=== PATIENT | male | born 1980 | race Two or more races ===

== ENCOUNTER 2019-04-19 23:03 | Emergency (ER) | payer MEDICAID ==
[~2019-04-19] VITALS: Ht 152.4 cm; Wt 81.6 kg
[2019-04-20 01:23] VITALS: BP 128/84
[2019-04-20] MEDS ORDERED: CLINDAMYCIN HCL 150 MG CAP PO ONE (02:00)
[2019-04-20] MEDS ORDERED: TETANUS-DIPTH-ACEL PERTUSSIS 0.5ML SYRG IM ONE (02:00)
[2019-04-20] MEDS ORDERED: cefTRIAXone SOD 1,000 MG VL IM ONE (02:15)
== END 2019-04-20 02:46 | disposition home or self-care (01) ==
LOC: ER 23:03
DX: S71.151A Open bite, right thigh, initial encounter (principal); W54.0XXA Bitten by dog, initial encounter; Y93.89 Activity, other specified; Y99.8 Other external cause status; Y92.89 Other specified places as the place of occurrence of the external cause; Z88.0 Allergy status to penicillin
CPT/HCPCS: 73552; 90471; 90715; 96372; 99283; J0696